=== PATIENT | female | born 1995 | race African-American/Black ===

== ENCOUNTER 2016-09-05 21:19 | Emergency (ER) | payer OTHER ==
[2016-09-05 23:18] VITALS: BP 118/71; PULSE 82; RESP 18; TEMP 97.1
[2016-09-06] MEDS ORDERED: ACETAMINOPHEN TAB 500 MG TAB PO STA
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
== END 2016-09-06 01:15 | disposition home or self-care (01) ==
LOC: EC 21:19
DX: M25.532 Pain in left wrist (principal); M79.642 Pain in left hand; R51 Headache; M79.89 Other specified soft tissue disorders; M25.511 Pain in right shoulder; F17.200 Nicotine dependence, unspecified, uncomplicated; V43.52XA Car driver injured in collision with other type car in traffic accident, initial encounter; W22.11XA Striking against or struck by driver side automobile airbag, initial encounter; Y92.410 Unspecified street and highway as the place of occurrence of the external cause
CPT/HCPCS: 71020; 99284

== ENCOUNTER 2018-11-08 13:15 | Emergency (ER) | payer OTHER ==
[2018-11-08 14:06] VITALS: BP 108/75; PULSE 63; RESP 16; TEMP 97.2
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
== END 2018-11-08 15:32 | disposition home or self-care (01) ==
LOC: EC 13:15
DX: R51 Headache (principal); F17.200 Nicotine dependence, unspecified, uncomplicated; W16.212A Fall in (into) filled bathtub causing other injury, initial encounter; Y93.E1 Activity, personal bathing and showering; Y92.002 Bathroom of unspecified non-institutional (private) residence as the place of occurrence of the external cause
CPT/HCPCS: 99283